=== PATIENT | male | born 1975 | race Caucasian/White ===

== ENCOUNTER 2025-02-25 10:02 | Outpatient (CLI) | payer OTHER, SELFPAY | END 2025-02-25 10:03 | disposition home or self-care (01) | PROVIDERS: PCP Family Medicine; Visit Provider Family Medicine | DX: Z00.00 Encounter for general adult medical examination without abnormal findings (principal); I10 Essential (primary) hypertension; E78.5 Hyperlipidemia, unspecified; Z13.0 Encounter for screening for diseases of the blood and blood-forming organs and certain disorders involving the immune mechanism; Z13.1 Encounter for screening for diabetes mellitus | CPT/HCPCS: 80048; 80061; 84443 ==